=== PATIENT | female | born 1950 | race Caucasian/White ===

== ENCOUNTER → 2023-12-26 07:17 | Outpatient (REF) | payer MEDICARE, OTHER, SELFPAY ==
[2023-12-26 09:26] LABS: Blood Urea Nitrogen 12 mg/dl (7-17); Calcium 9.8 mg/dl (8.4-10.2); Carbon Dioxide 25 mmol/L (22-30); Chloride 97 mmol/L (98-107); Glucose 104 mg/dl (70-99); Sodium 133 mmol/L (135-145); eGFR > 60.00
== END ==
LOC: REG 07:17
PROVIDERS: ATTENDING PHYSICIAN Family Medicine
DX: E87.1 Hypo-osmolality and hyponatremia (principal)
CPT/HCPCS: 36415; 80048

== ENCOUNTER → 2024-08-26 14:04 | Outpatient (REF) | payer MEDICARE, OTHER, SELFPAY | LOC: WDC 14:04 | PROVIDERS: ATTENDING PHYSICIAN Family Medicine | DX: M81.0 Age-related osteoporosis without current pathological fracture (principal); Z12.31 Encounter for screening mammogram for malignant neoplasm of breast | CPT/HCPCS: 77063; 77067; 77080 ==

== ENCOUNTER → 2024-10-15 07:08 | Outpatient (REF) | payer MEDICARE, OTHER, SELFPAY ==
[2024-10-15 07:51] LABS: % Basophils 0.6 % (0-2); % Eosinophils 4.3 % (0-6); % Immature Granulocytes 0.6 % (0-0.5); % Lymphocytes 26.9 % (20.5-51.1); % Monocytes 11.3 % (1.7-9.3); % Neutrophils 56.3 % (42.2-75.2); Absolute Eosinophils 0.2 10^3/uL (0-0.7); Absolute Lymphocytes 1.3 10^3/uL (1.2-3.4); Absolute Monocytes 0.5 10^3/uL (0.1-0.6); Absolute Neutrophils 2.6 10^3/uL (1.4-6.5); Hematocrit 42.1 % (37.0-47.0); Hemoglobin 14.1 g/dL (12.0-16.0); Mean Corp Hgb Conc. 33.5 g/dL (33.0-37.0); Mean Corpuscular Hgb 33.2 pg (27.0-31.0); Mean Corpuscular Volume 99.1 fL (81.0-99.0); Nucleated Red Blood Cells % 0 %; Platelet Count 226 10^3/uL (130-400); Red Blood Cell Count 4.25 10^6/uL (4.20-5.40); Red Cell Dist. Width 12.7 % (11.5-14.5); White Blood Cell Count 4.7 10^3/uL (4.8-10.8)
[2024-10-15 09:42] LABS: ALT (SGPT) 25 U/L (0-35); AST (SGOT) 33 U/L (14-36); Albumin 4.5 g/dl (3.5-5.0); Alkaline Phosphatase 68 U/L (38-126); Blood Urea Nitrogen 9 mg/dl (7-17); Carbon Dioxide 27 mmol/L (22-30); Chloride 96 mmol/L (98-107); Direct Bilirubin 0.2 mg/dl (0.0-0.4); Glucose 99 mg/dl (70-99); HDL Cholesterol 89 mg/dl; LDL Cholesterol, Calculated 127 mg/dl; Potassium 4.5 mmol/L (3.5-5.1); Sodium 134 mmol/L (135-145); Total Cholesterol 236 mg/dl (50-199); Triglyceride 103 mg/dl (10-149); Very Low Density Lipoprotein 20 mg/dl (0-30); eGFR > 60.00
[2024-10-15 09:55] LABS: Vitamin D, 25-OH*** 58.5 ng/mL (30-80)
== END ==
LOC: REG 07:08
PROVIDERS: ATTENDING PHYSICIAN Internal Medicine Hematology & Oncology; FAMILY PHYSICIAN Family Medicine
DX: C50.411 Malignant neoplasm of upper-outer quadrant of right female breast (principal); E78.00 Pure hypercholesterolemia, unspecified; E87.1 Hypo-osmolality and hyponatremia; R73.9 Hyperglycemia, unspecified; Z00.00 Encounter for general adult medical examination without abnormal findings
CPT/HCPCS: 36415; 80053; 80061; 82248; 82306; 85025

== ENCOUNTER → 2025-05-04 06:33 | Outpatient (REF) | payer MEDICARE, OTHER, SELFPAY | LOC: RAD 06:33 | PROVIDERS: ATTENDING PHYSICIAN Optometrist; FAMILY PHYSICIAN Family Medicine | DX: G45.3 Amaurosis fugax (principal); G43.109 Migraine with aura, not intractable, without status migrainosus; H43.813 Vitreous degeneration, bilateral; H25.813 Combined forms of age-related cataract, bilateral | CPT/HCPCS: 93880 ==

== ENCOUNTER → 2025-05-07 08:09 | Outpatient (REF) | payer MEDICARE, OTHER, SELFPAY | LOC: RCS 08:09 | PROVIDERS: ATTENDING PHYSICIAN Nuclear Medicine Nuclear Cardiology; FAMILY PHYSICIAN Family Medicine | DX: I49.3 Ventricular premature depolarization (principal); I34.0 Nonrheumatic mitral (valve) insufficiency | CPT/HCPCS: 93306 ==

== ENCOUNTER 2025-05-08 20:46 | Inpatient (IN) | payer MEDICARE, OTHER, SELFPAY ==
[2025-05-08 18:34] VITALS: BP 175/71; BMI 27.0
[2025-05-08 18:49] LABS: % Basophils 0.4 % (0-2); % Eosinophils 2.1 % (0-6); % Immature Granulocytes 0.7 % (0-0.5); % Lymphocytes 31.9 % (20.5-51.1); % Monocytes 10.3 % (1.7-9.3); % Neutrophils 54.6 % (42.2-75.2); Absolute Eosinophils 0.2 10^3/uL (0-0.7); Absolute Immature Granulocytes 0.1 10^3/uL (0-0.05); Absolute Lymphocytes 2.3 10^3/uL (1.2-3.4); Absolute Monocytes 0.7 10^3/uL (0.1-0.6); Absolute Neutrophils 3.9 10^3/uL (1.4-6.5); Hematocrit 37.1 % (37.0-47.0); Hemoglobin 13.1 g/dL (12.0-16.0); Mean Corp Hgb Conc. 35.3 g/dL (33.0-37.0); Mean Corpuscular Hgb 33.1 pg (27.0-31.0); Mean Corpuscular Volume 93.7 fL (81.0-99.0); Nucleated Red Blood Cells % 0 %; Platelet Count 232 10^3/uL (130-400); Red Blood Cell Count 3.96 10^6/uL (4.20-5.40); Red Cell Dist. Width 12.4 % (11.5-14.5); White Blood Cell Count 7.1 10^3/uL (4.8-10.8)
[2025-05-08] MEDS: ZOFRAN 4 MG IV (18:55)
[2025-05-08] MEDS: MORPHINE SULFATE 2 MG IV ×2 (18:55→20:22)
--- NOTE | 2025-05-08 18:59 | ED.MUSCINJ ---
HPI-Injury
General
Chief Complaint: Musculo-Skeletal Complaint
Source: patient
Exam Limitations: none
Time Seen by Provider: 05/08/25 18:45
Nursing documentation reviewed up to this point in time: agreed with
History of Present Illness-Injury
Is this injury a work related problem?: No
Is pt an associate of [facility]?: No
Initial Injury comments:
Patient states she fell while playing basketball with her grandson. States her right foot stepped on her left foot and she fell. She denies hitting her head. No LOC. Complains of pain to her left hip. Injuryoccurred just DIRECTOR OF COMPLIANCE
Past History
Past History
ED Past Medical History: Arrthythmia, Cancer (Breast), HTN and Other (MS)
ED Past Surgical History: Gynecological (Tubal ligation, Oophorectomy) and Orthopedic (Laminectomy)
Social History
Tobacco: Non-smoker
Alcohol: None
Drug: None
Review of Systems
Review of Systems
Allergies reviewed?: Yes
All Other Systems: ROS reviewed and negative except as documented in HPI and ROS
Constitutional: Reports no symptoms
EENT: Reports no symptoms
Respiratory: Reports no symptoms
Cardiac: Reports no symptoms
ABD/GI: Reports no symptoms
: Reports no symptoms
Musculoskeletal: Reports joint pain (Pain to her left hip)
Skin: Reports no symptoms
Neurological: Reports no symptoms
Psychiatric: Reports no symptoms
Musculoskeletal Injury Exam
Musculoskeletal Injury Exam
Left Hip:
Pain with Movement?: Moderate
Tender to palpation?: Moderate
Soft tissue swelling?: Moderate
External deformity and angulation?: None
Joint effusion?: None
Contusion?: Moderate
Hematoma-local bleeding into tissue?: Moderate
Strain- Sprain- Tear (Connective tissue injury)?: Moderate
Crepitus with movement?: No
Joint instability?: No
Malalignment/deformity?: No
Range of motion: Limited
Distal skin color and temperature: normal-warm & good color
Capillary Refill: normal
Normal distal neurovascular exam?: Yes
Peripheral Pulses: posterior tibial (left): 3+ and dorsalis pedis (left): 3+
Phy Exam
General Physical Exam
General Presentation: moderate distress
General age: appears stated age
General Skin: warm and dry
General Habitus: normal
General Mental: alert
General Hydration: appears well hydrated
Musculoskeletal Exam
Musculoskeletal Exam: neuro vasc intact
Skin Exam
Skin Exam: normal color, warm/dry and no rash
Psychiatric Exam
Psychiatric Exam: normal mood/affect
Injury Course
Orders/Labs/Results
Orders:
Orders
05/08/25 18:41
Complete Blood Count/With Diff Urgent
Comprehensive Metabolic Panel Urgent
05/08/25 18:52
Morphine Sulfate 2 mg .ROUTE .STK-MED ONE
Ondansetron Injectable [Zofran] 4 mg .ROUTE .STK-MED ONE
05/08/25 18:53
Hip, Left 2-3 Views [CR Hip - LT w/wo Pel 2-3 Vw*] Urgent
Comment:
Reason For Exam: fall, externally rotated and shortened
Include a pelvis x-ray?: Yes
05/08/25 18:54
Morphine Sulfate 2 mg IV NOW STA
Ondansetron Injectable [Zofran] 4 mg IV NOW STA
Ondansetron Injectable [Zofran] 4 mg IV NOW STA
05/08/25 18:55
Morphine Sulfate 2 mg IV NOW STA
05/08/25 19:39
ORTHOPEDIC CONSULT Urgent
Consulting Provider: Getachew Steen
Was physician already notified: Yes
05/08/25 20:10
Electrocardiogram (*1) Urgent
Reason for Study: PreOp
EKG- Treatment ONCE
05/08/25 20:11
Morphine Sulfate 2 mg IV NOW STA
05/08/25 20:20
Type+Screen Urgent
05/08/25 20:33
Admit/Transfer Patient As Directed
Co-Sign Provider:
Level of Care: Inpatient admission
Assign to:: Medical/Surgical
Physician / Group: Erma/Hospitalist
Diagnosis: left hip fracture
Reason for Hospitalization: left hip fracture
Expected length of stay greater than two midnights?: Yes
ELOS- Estimated Length of Stay in days: 3
I certify the patient meets the requirements for IP care: Yes
PRN Pain Medication Management As Directed
May give lesser potent ordered pain med per pt: Yes
preference::
Protocol:: Medication orders for pain may be administered in a
manner that supports deferring to patient preference
when the pt is:
- Requesting an ordered lesser potent pain medication.
Least to most potent pain medications are defined
as: acetaminophen < NSAID < tramadol < opioids
(morphine, oxycodone, hydromorphone).
- Requesting a lesser dose of the same medication IF
ORDERED.
- Requesting a less intrusive route of administration
if both routes are prescribed by the provider (PO <
IV).
05/08/25 20:34
Code Status As Directed
Resuscitation Status: Full Code
Abnormal Lab Results
05/08/25
18:41
RBC 3.96 L 10^6/uL
(4.20-5.40)
MCH 33.1 H pg
(27.0-31.0)
Abs Immat Gran (auto) 0.1 H 10^3/uL
(0-0.05)
Absolute Monos (auto) 0.7 H 10^3/uL
(0.1-0.6)
Immature Gran % 0.7 H %
(0-0.5)
Monocytes % 10.3 H %
(1.7-9.3)
Sodium 133 L mmol/L
(135-145)
Glucose 113 H mg/dl
(70-99)
05/08/25 18:41
05/08/25 18:41
*Radiology
Radiology exam reviewed: radiology read reviewed
*Pulse Oximetry
Patient hypoxic: no
*Critical Care Note
Total Time (30-74mins, 75-104mins- exclusive of procedures): Not Applicable
Update Note
Update Note:
Patient to ED after fall. Xray confirms left hip fx. Dr. Steen consulted, plan for OR at 9AM. SHe is admitted to hospitalist service. Xray findings discussed with patient and family.
ED Attending Note
-
Portions of this chart may have been created with voice recognition software.� Occasional wrong word or��sound alike� substitutions may have occurred due to the inherent limitations of voice recognition software.
Discharge Plan
Departure
Patient Disposition: Admit
Date of Disposition: 05/08/25
Time of Disposition: 19:39
Presentation/result/management discussed w/ accepting MD/DO: Hospitalist
Patient with high blood pressure during this ER visit?: No
Condition: Fair
Covid-19: Not Applicable
Discharge Problem:
Closed fracture of left hip
Prescriptions:
No Action
metoprolol succinate 50 MG tablet extended release 24 hr
50 mg PO DAILY
ibuprofen 200 MG tablet
200 mg PO PRN PRN (Reason: pain)
acetaminophen 325 MG tablet
650 mg PO Q4HPRN PRN (Reason: Pain>4/10) 0RF
multivitamin Tablet
1 tab PO DAILY
loratadine 10 mg Tablet
10 mg PO DAILY
rosuvastatin 5 mg Tablet
5 mg PO DAILY
cholecalciferol (vitamin D3) [Vitamin D3] 50 mcg (2,000 unit) Capsule
50 mcg PO DAILY
Interventions
Interventions:
*Risk Screen - Suicide Last Done: 05/08/25 18:34
*General Assessment Last Done: 05/08/25 18:34
*Neglect/Abuse Screening Last Done: 05/08/25 18:34
*ED- Fall Risk Assessment Last Done: 05/08/25 18:34
*ED COVID-19 Vaccine History Last Done: 05/08/25 18:34
ED-Musculoskeletal Assessment Last Done: 05/08/25 18:38
Discharge Date and Time
Print Language: MONGOLIAN
[2025-05-08 19:00] VITALS: BP 162/70
[2025-05-08 19:18] LABS: ALT (SGPT) 19 U/L (0-35); AST (SGOT) 27 U/L (14-36); Albumin 4.4 g/dl (3.5-5.0); Alkaline Phosphatase 86 U/L (38-126); Blood Urea Nitrogen 11 mg/dl (7-17); Calcium 9.6 mg/dl (8.4-10.2); Carbon Dioxide 25 mmol/L (22-30); Chloride 103 mmol/L (98-107); Estimated Creatinine Clearance 60 ml/min; Glucose 113 mg/dl (70-99); Potassium 4.2 mmol/L (3.5-5.1); Sodium 133 mmol/L (135-145); Total Bilirubin 0.6 mg/dl (0.2-1.3); Total Protein 6.8 g/dl (6.3-8.2); eGFR > 60.00
--- NOTE | 2025-05-08 19:52 | HPS.HSE ---
Addendum entered and electronically signed by Tierra Ritchie, 05/08/25 20:42:
EKG reviewed- NSR, LAD, no evidence for myocardial ischemia
Original Note:
Family Physician
-
Family Physician:
Chief Complaint
-
Fall
History of Present Illness
The patient is a 74 year-old female with PMH significant for arrhythmia s/p ablation, breast cancer s/p left-sided mastectomy and chemotherapy, HTN, and remote diagnosis of MS (in the , not requiring medical treatment currently-has glove and
sock paraesthesias and no other symptoms), lumbar stenosis s/p lumbar fusion, left knee OA s/p left knee replacement, takes ibuprofen nightly, not on aspirin nor anticoagulants, who presents due to a fall on her hip resulting in severe pain,
inability to ambulate, and found to have a left hip fracture in the ED. She denies CP, no SOB, no palpitations, no fever, no n/v/d, no dysuria, no abdominal complaints.
Na 133, Gluc 113
ED treatment: IV Morphine, IV Zofran 4 mg
Medical History
Past Medical History
Past Medical History: Reports Arrhythmia, Cancer (breast), HTN and Other (MS)
Past Surgical History: Reports Cardiac (ablation for arrhythmia), Gynocological (Tubal ligation, oophorectomy) and Orthopedic (laminectomy, lumbar fusion, left knee replacement)
Social History
Tobacco: Non-smoker
Alcohol: Daily (1-2 glasses of wine nightly)
Drug: None
Family History
Family History: Not pertinent
Allergies / Home Medications
Allergies reflects when Allergies were last updated in [facility].
Home Medications with original date entered in [facility]
Allergy/Medication List:
Allergies
Allergy/AdvReac Type Severity Reaction Status Date / Time
adhesive tape Allergy Rash/itchin Verified 05/08/25 18:34
g
Home Medications
calcium 500 mg-vitamin D3 1,000 unit-vitamin K 40 mcg chewable tablet (Citracal-D3 Soft Chew) 1 ea PO DAILY 12/29/15
ibuprofen 200 mg tablet 200 mg PO PRN PRN pain 12/29/15
metoprolol succinate 50 mg tablet,extended release 24 hr 50 mg PO DAILY 12/29/15
Loratadine 1 tab PO PRN PRN allergies 08/19/18
acetaminophen 325 mg tablet 650 mg (2 x 325 mg) PO Q4HPRN PRN Pain>4/10 08/21/18
docusate sodium 100 mg capsule 100 mg PO BID 08/21/18
hydrocodone 5 mg-acetaminophen 325 mg tablet 1 tab PO Q4HPRN PRN pain >410 when taking PO ##20 08/21/18
Rosuvastatin 5 mg nightly
Review of Systems
-
A 12 point ROS was completed and negative except as noted: Yes
Physical Exam
Vital Signs
Vital Signs
Temp Pulse Resp BP Pulse Ox
97.8 F 64 16 175/71 99
05/08/25 18:34 05/08/25 18:34 05/08/25 18:34 05/08/25 18:34 05/08/25 18:34
Physical Exam
General: Well Developed, Well Nourished, No Apparent Distress, Comfortable and Conversant
HEENT: NormoCephalic, Anicteric and Moist mucous membranes
Respiratory: Clear
Cardiac: S1/S2, Regular Rhythm and Other (good distal pulses, neurovascular intact distal b/l LE)
GI: Soft, Non Tender and Non Distended
Musculoskeletal: No Clubbing, No Cyanosis and No Edema
Skin: Warm and Dry
Neuro: AO x 3, No Motor Deficits and Nonfocal/grossly intact
Psych: Calm
Laboratory Results
-
05/08/25 18:41
05/08/25 18:41
Laboratory Results
Total Bilirubin 0.6 mg/dl (0.2-1.3) 05/08/25 18:41
AST 27 U/L (14-36) 05/08/25 18:41
ALT 19 U/L (0-35) 05/08/25 18:41
Alkaline Phosphatase 86 U/L (38-126) 05/08/25 18:41
Data Reviewed
-
Diagnostic Radiology: Image Personally Visualized and interpreted (left hip intertrochanteric fx, report pending), Discussed with Nurse, Discussed with Patient and Discussed with Family
Lab Data: Labs Reviewed by me
Impression/Plan
-
IMPRESSION:
The patient is a 74 year-old female with PMH significant for arrhythmia s/p ablation, breast cancer s/p left-sided mastectomy and chemotherapy, HTN, and remote diagnosis of MS (in the , not requiring medical treatment currently-has glove and
sock paraesthesias and no other symptoms), lumbar stenosis s/p lumbar fusion, left knee OA s/p left knee replacement, takes ibuprofen nightly, not on aspirin nor anticoagulants, who presents due to a fall on her hip resulting in severe pain,
inability to ambulate, and found to have a left hip fracture in the ED. She denies CP, no SOB, no palpitations, no fever, no n/v/d, no dysuria, no abdominal complaints.
Na 133, Gluc 113
ED treatment: IV Morphine, IV Zofran 4 mg
Impression:
#Left Hip Fracture, intertrochanteric, acute, associated with severe pain and inability to ambulate, neurovascular is intact
-admit to med/surg
-Ortho consulted from ED
-continue IV morphine, IV zofran prn
-IVF overnight while NPO
-neurovascular checks scheduled
-NPO p mn for surgery 9 am, no lovenox nor heparin per ortho, will placed SCDs
# Hx arrhythmia s/p ablation, remote
-Echocardiogram performed here May 07, 2025- normal left ventricular size and systolic function with no regional wall motion abnormalities, EF of 50 to 55%, mild concentric left ventricular hypertrophy,
-stage I diastolic dysfunction
- Will obtain EKG
-Continue patient's beta-johana- metoprolol 50 mg extended release nightly
#HLD
-just started on statin 2 days prior, continue
#HTN, essential
-on metoprolol, continue, BP elevated likely due to pain, cont pain management and prn BP meds
#Hx of L knee replacement
#Hx of spinal stenosis s/p lumbar fusion
#Hx of MS, remote, remission
#Hx of Breast cancer, 2018 s/p mastectomy and chemo w no recurrence, up to date on mammo
PLAN: The patient is at low surgical risk for cardiovascular complications and her medical comorbidities are well compensated. She is medically stable and optimized for surgical intervention, will be n.p.o. past midnight for surgical intervention
tomorrow with orthopedics.
DVT proph-PCDs
Full Code
[2025-05-08 20:25] VITALS: BP 126/84
[2025-05-08 21:00] VITALS: BP 113/67
--- NOTE | 2025-05-08 22:30 | PTCARENOTE ---
Pt arrived to room 417-1. Pt transferred from stretcher to bed. Pt AAOx3, VSS. Pt c/o 6-06/04 L hip pain. Oriented to room, call gonzalez placed within reach.
[2025-05-08 22:38] VITALS: BP 138/66; BMI 24.9
[2025-05-08] MEDS: TOPROL XL 50 MG PO (22:44)
[2025-05-08] MEDS: COLACE 100 MG PO (22:44)
[2025-05-08] MEDS: SENOKOT 17.2 MG PO (22:44)
[2025-05-08] MEDS: NSS 1000 IV (22:44)
[2025-05-08] MEDS: TYLENOL 650 MG PO (23:00)
[2025-05-09] VITALS (15 sets, daily range): BP systolic 86–152; BP diastolic 50–102
[2025-05-09] MEDS: MORPHINE SULFATE 1 MG IV ×2 (00:43→08:04)
[2025-05-09] MEDS: TYLENOL 650 MG PO ×5 (03:11→20:17)
[2025-05-09] MEDS: TOPROL XL 50 MG PO (08:06)
[2025-05-09] MEDS: VITAMIN D3 (cholecalciferol) 50 MCG PO (08:06)
[2025-05-09] MEDS: SENOKOT 17.2 MG PO ×2 (08:06→20:17)
[2025-05-09] MEDS: CRESTOR 5 MG PO (08:06)
[2025-05-09] MEDS: COLACE 100 MG PO ×2 (08:07→20:17)
--- NOTE | 2025-05-09 09:37 | W.PN.UPDATE ---
Update Note
Progress Note Update
Pt seen and examined, has left hip intertrochanteric fx from mechanical fall playing basketball w. her grandson.
Reports no preexisting hip pain. H/o breast cancer w. ostensibly curative treatment in 2018, no known distant disease.
In good health.
I rec'd ORIF of the left hip fx and described what this entails and susan pictures for her and her . They both are in agreement to proceed which we will do this morning.
--- NOTE | 2025-05-09 09:38 | CON.ORTHO ---
Consultation
-
Date/Time Consultation Requested: 05/09/25
Date/Time Consultation Performed: 05/09/25 @930am
Requesting Provider: ER Provider
Performing Provider: Ratna Alegre PA-C, Getachew Steen MD
Reason for Consultation: left hip fracture
Consultation - Orthopedics
History
HPI: 74yo female admitted to [facility] for left hip pain. Yesterday, she was playing basketball with her eight year old grandson when her feet got caught up causing her to fall on to her left side. She has immediate pain to the left hip
and difficulty bearing weight. She presented to the ER where xrays revealed left hip fracture. She is not on any blood thinners. Currently, she just received some pain medications and therefore is resting comfortable in bed. Her , Benigno, is
also at the bedside.
PAST MEDICAL HISTORY: history of breast cancer s/p chemo, cardiac arrhythmia, HTN, and remote diagnosis of MS (in the 1980s, not requiring medical treatment currently-has glove and sock paraesthesias and no other symptoms), lumbar stenosis, left
knee OA
PAST SURGICAL HISTORY: left mastectomy, cardiac ablation, lumbar spinal fusion with Dr. Braga, left TKA with Dr. Valencia
SOCIAL HISTORY: lives at home with . denies tobacco, alcohol. ambulates without assistive device
FAMILY HISTORY: Noncontributory
REVIEW OF SYSTEMS: 12 point review of systems obtained and negative exept those mentioned in the HPI
Allergies / Home Medications
Allergy/AdvReac Type Severity Reaction Status Date / Time
adhesive tape Allergy Rash/itchin Verified 05/08/25 18:34
g
�Medication �Instructions �Recorded
ibuprofen 200 mg tablet 200 mg PO PRN PRN pain 12/29/15
metoprolol succinate 50 mg 50 mg PO DAILY Blood Pressure 12/29/15
tablet,extended release 24 hr
acetaminophen 325 mg tablet 650 mg (2 x 325 mg) PO Q4HPRN PRN 08/21/18
Pain>4/10
cholecalciferol (vitamin D3) 50 50 mcg PO DAILY Supplement 05/08/25
mcg (2,000 unit) capsule (Vitamin
D3)
loratadine 10 mg tablet 10 mg PO DAILY Allergies 05/08/25
multivitamin 1 tab PO DAILY Supplement 05/08/25
rosuvastatin 5 mg tablet 5 mg PO DAILY High Cholesterol 05/08/25
Vital Signs / Lab Results
Temp Pulse Resp BP Pulse Ox
98.9 F 58 18 141/71 96
05/09/25 07:00 05/09/25 08:06 05/09/25 07:00 05/09/25 08:06 05/09/25 07:00
05/08/25 18:41
05/08/25 18:41
RADIOGRAPHIC FINDINGS:
Xrays left hip there is a comminuted intertrochanteric fracture of the proximal left femur with some splaying of several small fracture fragments. Osseous degenerative changes are noted as well as postsurgical changes of the lower lumbar spine.
PHYSIAL EXAM:
General: no acute distress
HEENT: NCAT, sclera anicteric, normal hearing
Heart: No JVD
Lungs: normal work of breathing on room air
MSK: Directed exam of left leg performed. leg is shortened and externally rotates. +Log roll. skin intact. no discolorations. ROM hip deferred. +TTP over lateral hip. calf soft and nontender. NVI distally.
Assessment / Plan
ASSESSMENT: Left hip intertrochanteric fracture
PLAN: Patient seen in tandem with Dr. Steen. Unfortunately, Mrs. Sharp sustained a left intertrochanteric hip fracture with her fall yesterday. Recommend operative fixation with left hip gamma nail under the direction of Dr. Steen today. The
risks, benefits, and potential complications were reviewed. She is in agreement with the plan. Surgical and blood consents obtained. She has been NPO since midnight. Ancef aviation mechanic to OR. She will require PT/OT postop. All of her questions were
answered. We will continue to follow along
[2025-05-09] MEDS: SUBLIMAZE 25 MCG IV ×2 (11:12→11:22)
[2025-05-09] MEDS: ANCEF 5 IV ×2 (12:17→20:16)
[2025-05-09] MEDS: NSS 1000 IV (12:17)
--- NOTE | 2025-05-09 12:24 | CM ---
Addendum entered by HORTENCIA Cox 05/09/25 12:28:
Referral to [facility] PT only saved in [facility] but not sent to [facility].
Original Note:
Chart reviewed. Patient admitted after fall while playing basketball with her grandson. She has left hip fracture. Dr. Schwab did surgical repair, left gamma nail. Cm met with spouse while patient in surgery. They live in 2 level home with a first
floor set up she used when she had TKR. THere are 5 steps in. First floor full bath has a tub, no DME in bathroom. She may still have a RW but has crutches and cane. UP full flight is walk in shower with seat and rails.
PCP DR. Sutton
Pharmacy: [facility]
Will await PT OT evaraseli but believes patient will want to go home to first floor set up. She had [facility] in past and would use [facility] at home if necessary. CM to follow for discharge needs.
PLAN: may need home PT or outpatient PT.
--- NOTE | 2025-05-09 16:11 | W.PN.HOSP.TC ---
Today's Communication/Plan
-
pain control
follow hbg level
pt/ot in am
discharge planning from tomorrow
Assessment / Plan
Assessment / Plan
#Left Hip Fracture, intertrochanteric, acute, associated with severe pain and inability to ambulate, neurovascular is intact
-admit to med/surg
- Patient is status post left hip surgery today
-Continue pain medication as needed
-PT OT tomorrow early
# Hx arrhythmia s/p ablation, remote
-Echocardiogram performed here May 07, 2025- normal left ventricular size and systolic function with no regional wall motion abnormalities, EF of 50 to 55%, mild concentric left ventricular hypertrophy,
-stage I diastolic dysfunction
-Continue patient's beta-johana- metoprolol 50 mg extended release nightly
#HLD
-just started on statin 2 days prior, continue
#HTN, essential
-on metoprolol, continue, BP elevated likely due to pain, cont pain management and prn BP meds
Hx of L knee replacement
Hx of spinal stenosis s/p lumbar fusion
Hx of MS, remote, remission
Hx of Breast cancer, 2018 s/p mastectomy and chemo w no recurrence, up to date on mammo
DVT proph-PCDs
Full Code
Anticipated Discharge: 24 - 48 hours
Subjective/Interval History
-
Date of Service: May 09, 2025
Seen postoperatively
no hip pain
no other complains
Objective Data
-
Vital Signs:
Vital Signs
Temp Pulse Resp BP Pulse Ox
97.7 F 59 18 101/62 100
05/09/25 15:00 05/09/25 15:00 05/09/25 15:00 05/09/25 15:00 05/09/25 15:00
I&O
05/08/25 05/09/25 05/10/25
06:59 06:59 06:59
Intake Total 100 / 100
Balance 100 / 100
Review of Systems
-
Respiratory: Reports No Symptoms
Cardiac: Reports No Symptoms
Abdomen/GI: Reports No Symptoms
Physical Exam
-
General: Pain
HEENT: Negative Oxygen
Neuro: Awake, Alert and Oriented
[2025-05-09] MEDS: ASPIRIN 325 MG PO (17:05)
[2025-05-10] VITALS (9 sets, daily range): BP systolic 98–133; BP diastolic 44–73; PULSE 65; O2SAT 98
[2025-05-10] MEDS: ROXICODONE 5 MG PO ×2 (00:26→09:08)
[2025-05-10] MEDS: TYLENOL 650 MG PO ×6 (00:27→20:00)
[2025-05-10] MEDS: CRESTOR 5 MG PO (07:46)
[2025-05-10] MEDS: SENOKOT 17.2 MG PO ×2 (07:46→20:00)
[2025-05-10] MEDS: COLACE 100 MG PO ×2 (07:46→20:00)
[2025-05-10] MEDS: ASPIRIN 325 MG PO (07:47)
[2025-05-10] MEDS: TOPROL XL 50 MG PO (07:47)
[2025-05-10] MEDS: VITAMIN D3 (cholecalciferol) 50 MCG PO (07:47)
--- NOTE | 2025-05-10 12:40 | W.PN.HOSP.TC ---
Addendum entered and electronically signed by Artem Delcid MD 05/10/25 12:54:
Acute blood loss anemia
- Morning labs reported with hemoglobin to down to 8, which was 13 preoperatively
- Recheck in evening as possibly sampling/lab error. No reported significant blood loss from OR note reviewed.
- will need transfusion if Hbg < 7
- No other signs of ongoing luminal blood loss.
Original Note:
Today's Communication/Plan
-
continue current meds
d/c planning for rehab
f/u hbg level
Assessment / Plan
Assessment / Plan
#Left Hip Fracture, intertrochanteric, acute, associated with severe pain and inability to ambulate, neurovascular is intact
-admit to med/surg
- Patient is status post left hip surgery on 05/09
-Continue pain medication as needed
-PT OT evaluated patient, discharge planning ongoing
# Hx arrhythmia s/p ablation, remote
-Echocardiogram performed here May 07, 2025- normal left ventricular size and systolic function with no regional wall motion abnormalities, EF of 50 to 55%, mild concentric left ventricular hypertrophy,
-stage I diastolic dysfunction
-Continue patient's beta-johana- metoprolol 50 mg extended release nightly
#HLD
-just started on statin 2 days prior, continue
#HTN, essential
-on metoprolol, continue, BP elevated likely due to pain, cont pain management and prn BP meds
Hx of L knee replacement
Hx of spinal stenosis s/p lumbar fusion
Hx of MS, remote, remission
Hx of Breast cancer, 2018 s/p mastectomy and chemo w no recurrence, up to date on mammo
DVT proph-PCDs
Full Code
Anticipated Discharge: Within 24 hours
Subjective/Interval History
-
Date of Service: May 10, 2025
Denies of any significant pain
Able to work with physical therapy
No dizziness/palpitation/dyspnea
Objective Data
-
Labs:
Laboratory Results
05/10/25
12:31
WBC Pending
Hgb Pending
Hct Pending
Plt Count Pending
Vital Signs:
Vital Signs
Temp Pulse Resp BP Pulse Ox
97.7 F 63 18 123/66 97
05/10/25 07:02 05/10/25 07:02 05/10/25 07:02 05/10/25 07:47 05/10/25 07:02
I&O
05/09/25 05/10/25 05/11/25
06:59 06:59 06:59
Intake Total 580 / 580 420 / 420
Balance 580 / 580 420 / 420
Review of Systems
-
Respiratory: Reports No Symptoms
Cardiac: Reports No Symptoms
Abdomen/GI: Reports No Symptoms
Physical Exam
-
General: Pain
HEENT: Negative Oxygen
GI: Soft, Nontender and Nondistended
Musculoskeletal: Other (Left hip dressing in place, dried blood )
Neuro: Awake, Alert and Oriented
[2025-05-10 12:48] LABS: Hemoglobin 7.9 g/dL (12.0-16.0); Mean Corp Hgb Conc. 35.9 g/dL (33.0-37.0); Mean Corpuscular Hgb 34.2 pg (27.0-31.0); Mean Corpuscular Volume 95.2 fL (81.0-99.0); Mean Platelet Volume 10.2 fL (7.4-10.4); Platelet Count 176 10^3/uL (130-400); Red Blood Cell Count 2.31 10^6/uL (4.20-5.40); Red Cell Dist. Width 12.6 % (11.5-14.5); White Blood Cell Count 12.4 10^3/uL (4.8-10.8)
--- NOTE | 2025-05-10 13:51 | W.PN.ORTHO ---
Today's Communication / Plan
-
POD#1 left hip gamma nail under the direction of Dr. Steen
--Weight bearing as tolerated. Ambulate with assistive device
--PT/OT
--Pain management as needed
--Aspirin 325mg daily x4 weeks postop for DVT prophylaxis
--Hemoglobin 7.9 on AM labs. Repeat hemoglobin pending. Continue to monitor. Transfuse per primary if indicated
--Proximal and middle dressings with drainage extending to the border. This was changed. Reinforce/change as needed
--Case management consult for discharge planning
--Will continue to follow along
Assessment
.
Distal Motor Intact: Yes
Dressing:
proximal and middle dressing with bloody drainage to border
Plan
.
Surgery / Date: Left hip gamma nail 05/09/25 Dr. Steen
DVT Prophylaxis: Aspirin
Activity:
Out of bed.
PT/OT
Subjective
.
.:
Patient resting comfortably in bed. She reports that she was out of bed yesterday and today with PT. She reports pain with movement but manageable at rest
Vital Signs and Labs
.
Vital Signs and Labs:
Lab Results
05/08/25 18:41
Temp Pulse Resp BP Pulse Ox
98.5 F 69 16 111/59 97
05/10/25 11:10 05/10/25 11:10 05/10/25 11:10 05/10/25 11:10 05/10/25 11:10
Physical Exam
-
Directed exam of left hip with three primaseal dressings intact. There is bloody drainage to the proximal and middle dressings extending to the border. +TTP over lateral hip, thigh is soft and compressible. able to plantarflex and dorsiflex the
ankle. calf soft and nonteder. NVI distally
--- NOTE | 2025-05-10 13:59 | CM ---
CM following re: discharge planning.
Reviewed pt's chart, met with pt and pt's at bedside.
Pt is status post left hip surgery on 05/09, continue supportive care.
PT and OT evaluations noted - acute level of rehab recommended.
CM discussed it with pt and her and they requested [facility]. A referral to [facility] made.
Alternative subacute level of rehab discussed with the [pt in case pt does not qualify for acute level of rehab and pt requested [facility] or [facility]. A referral to above SNFs made.
D/C plan: Plan A: [facility]. Plan B: preferred SNF: [facility] or [facility].
CM will follow to assist pt with discharge to a preferred SNF.
[2025-05-10 18:08] LABS: Hematocrit 21.2 % (37.0-47.0); Hemoglobin 7.4 g/dL (12.0-16.0); Mean Corp Hgb Conc. 34.9 g/dL (33.0-37.0); Mean Corpuscular Hgb 33.2 pg (27.0-31.0); Mean Corpuscular Volume 95.1 fL (81.0-99.0); Mean Platelet Volume 10.4 fL (7.4-10.4); Platelet Count 162 10^3/uL (130-400); Red Blood Cell Count 2.23 10^6/uL (4.20-5.40); Red Cell Dist. Width 12.4 % (11.5-14.5); White Blood Cell Count 11.1 10^3/uL (4.8-10.8)
--- NOTE | 2025-05-10 23:28 | PTCARENOTE ---
1u PRBC infused as ordered. Pt's VS as documented. No adverse reactions. Care ongoing.
[2025-05-11] MEDS: TYLENOL PO ×2 (01:00→04:19)
[2025-05-11] MEDS: ROXICODONE 5 MG PO ×2 (02:43→10:14)
--- NOTE | 2025-05-11 05:50 | W.PN.ORTHO ---
Today's Communication / Plan
-
74F POD#2 left hip cephalomedullary nail with Dr. Steen
--Weight bearing as tolerated. Ambulate with assistive device
--PT/OT
--Pain management as needed
--diet per primary
--Aspirin 325mg daily x4 weeks postop for DVT prophylaxis
--Reinforce/change as needed
--Case management consult for discharge planning
--Discharge information up to date.
Assessment
.
Distal Motor Intact: Yes
Dressing:
Clean, dry edges and intact.Minimal saturation
Plan
.
Surgery / Date: Left hip CMN 05/09/25 Dr. Steen
Activity:
Out of bed.
PT/OT
Subjective
.
.:
Patient resting comfortably.
Vital Signs and Labs
.
Vital Signs and Labs:
Lab Results
05/08/25 18:41
Temp Pulse Resp BP Pulse Ox
97.9 F 63 18 122/56 97
05/10/25 23:19 05/10/25 23:19 05/10/25 23:19 05/10/25 23:19 05/10/25 23:00
[2025-05-11 07:35] VITALS: BP 124/61
[2025-05-11 08:01] LABS: Hematocrit 24.6 % (37.0-47.0); Hemoglobin 8.7 g/dL (12.0-16.0); Mean Corp Hgb Conc. 35.4 g/dL (33.0-37.0); Mean Corpuscular Hgb 32.3 pg (27.0-31.0); Mean Corpuscular Volume 91.4 fL (81.0-99.0); Platelet Count 154 10^3/uL (130-400); Red Blood Cell Count 2.69 10^6/uL (4.20-5.40); Red Cell Dist. Width 15.1 % (11.5-14.5); White Blood Cell Count 9.4 10^3/uL (4.8-10.8)
[2025-05-11] MEDS: CRESTOR 5 MG PO (08:48)
[2025-05-11] MEDS: TOPROL XL 50 MG PO (08:49)
[2025-05-11] MEDS: TYLENOL 650 MG PO ×2 (08:49→12:10)
[2025-05-11] MEDS: VITAMIN D3 (cholecalciferol) 50 MCG PO (08:49)
[2025-05-11] MEDS: ASPIRIN 325 MG PO (08:50)
[2025-05-11] MEDS: SENOKOT PO (08:51)
[2025-05-11] MEDS: COLACE PO (08:51)
[2025-05-11 11:30] VITALS: BP 106/55; BP 87/59; BP 97/53; PULSE 66; PULSE 70
--- NOTE | 2025-05-11 11:43 | PTCARENOTE ---
Pt hypotensive (BP 87/59 HR 70) while working with PT/OT. Pt assisted into wheelchair and immediately stated feeling better once sitting. Pt wheeled back to room and assisted into recliner chair. BP recheck 97/53 HR 63. Pt denies any further
symptoms at this time. Dr Franco notified, care ongoing.
[2025-05-11] MEDS: NSS 1000 IV ×2 (12:11→14:28)
[2025-05-11 12:44] VITALS: BP 106/55; BP 97/53; PULSE 66
--- NOTE | 2025-05-11 12:49 | W.PN.HOSP.TC ---
Addendum entered and electronically signed by Inocencio Moon DO 05/11/25 16:31:
Additional diagnosis:
fracture due to combination of trauma and pathologic process (osteopenia) but the trauma alone would likely not have been sufficient to cause the fracture
Original Note:
Today's Communication/Plan
-
Assessment / Plan
Assessment / Plan
General: No Apparent Distress, Comfortable and Conversant
HEENT: NormoCephalic, Moist mucous membranes, Atraumatic
Respiratory: Clear and Non Labored Respirations
Cardiac: S1/S2 and Regular Rhythm; No Rub or Gallop
GI: Soft, Non Tender, Non Distended and Normal Bowel Sounds
Musculoskeletal: No Edema, no deformity, left lateral leg surgical site with mild strikethrough
: NO Jorge
Neuro: Awake, Alert, Nonfocal/grossly intact
Psych: Calm and Intact Judgment/Insight
#Left Hip Fracture, intertrochanteric, acute, associated with severe pain and inability to ambulate, neurovascular is intact
- status post left hip surgery on 05/09
-Continue pain medication as needed, aspirin 325 daily postoperatively for 4 weeks per Ortho
-PT OT evaluated patient, excepted to acute rehab at [facility]
Anemia requiring transfusions
- Hemoglobin dropped from 13.1 preoperatively to 7.9 postoperatively
- Likely multifactorial including expected intraoperative blood loss and dilutional effect from IV fluid administration
- Transfused 1 unit PRBCs on 05/10, hemoglobin now 8.7, will monitor
# Hx arrhythmia s/p ablation, remote
-Echocardiogram performed here May 07, 2025- normal left ventricular size and systolic function with no regional wall motion abnormalities, EF of 50 to 55%, mild concentric left ventricular hypertrophy,
-stage I diastolic dysfunction
-Continue patient's beta-johana- metoprolol 50 mg extended release nightly
#HLD
-just started on statin 2 days prior to arrival, continue
#HTN, essential
-on metoprolol, continue, BP currently controlled
Hx of L knee replacement
Hx of spinal stenosis s/p lumbar fusion
Hx of MS, remote, remission
Hx of Breast cancer, 2018 s/p mastectomy and chemo w no recurrence, up to date on mammo
DVT proph-PCDs
Full Code
Anticipated Discharge: Within 24 hours
Subjective/Interval History
-
Date of Service: May 11, 2025
Patient was seen and examined at bedside this morning. She is anxiously awaiting rehab placement for physical therapy postoperatively. No active bleeding and hemoglobin remains stable after transfusion 1 unit PRBCs yesterday.
Objective Data
-
Labs:
Laboratory Results
05/11/25
07:08
WBC 9.4
Hgb 8.7 L
Hct 24.6 L
Plt Count 154
Vital Signs:
Vital Signs
Temp Pulse Resp BP Pulse Ox
98.2 F 75 16 124/61 96
05/11/25 07:35 05/11/25 07:35 05/11/25 07:35 05/11/25 07:35 05/11/25 07:35
I&O
05/10/25 05/11/25 05/12/25
06:59 06:59 06:59
Intake Total 580 / 580 1235 / 1235
Balance 580 / 580 1235 / 1235
Review of Systems
-
History Source: Patient
All other systems: Reviewed and negative
Musculoskeletal: Reports Joint Pain (Left lateral leg pain at surgical site)
Physical Exam
-
General: No Apparent Distress
[2025-05-11 14:36] VITALS: BP 124/60; BP 125/62; PULSE 76; PULSE 87
--- NOTE | 2025-05-11 14:51 | PTCARENOTE ---
Report called to Sarah snider in [facility]. R FA IV left in place per request. This RN awaiting IV bolus completion and DC order/ paperwork.
--- NOTE | 2025-05-11 14:54 | W.DCSUMMARY ---
Discharge Summary
Discharge Data
Date of Admission: 05/08/25
Date of Discharge: 05/11/25
Total time spent discharging patient (in min): 40
-
Pending Results: No
Hospital Course
Ms. Sharp is a 74-year-old female with a medical history of arrhythmia (status post ablation), breast cancer (status post left mastectomy and chemo), hypertension, remote diagnosis of MS (, not on medical treatment, has glove and sock
paresthesias only), lumbar stenosis (status post fusion), and osteoarthritis (status post left TKA) who presented following a fall resulting in left hip fracture. She was admitted for further evaluation and management. She underwent ORIF on 05/09
with left hip cephalomedullary nail. She tolerated procedure well. She did require transfusion of 1 unit PRBCs on 05/10 for drop in hemoglobin from 13.1 preoperatively to 7.9 postoperatively. Her hemoglobin level responded to 8.7 following
transfusion. She is medically stable for discharge to acute rehab at [facility] for ongoing postoperative physical therapy. She will be continued on aspirin 325 mg daily for 4 weeks postop and will need to follow-up with orthopedics in their outpatient
clinic. She should continue taking pantoprazole for acid suppression in order to prevent stomach ulcers while taking full-strength aspirin postoperatively.
General: No Apparent Distress, Comfortable and Conversant
HEENT: NormoCephalic, Moist mucous membranes, Atraumatic
Respiratory: Clear and Non Labored Respirations
Cardiac: S1/S2 and Regular Rhythm; No Rub or Gallop
GI: Soft, Non Tender, Non Distended and Normal Bowel Sounds
Musculoskeletal: No Edema, no deformity, left lateral leg surgical site with mild strikethrough
: NO Jorge
Neuro: Awake, Alert, Nonfocal/grossly intact
Psych: Calm and Intact Judgment/Insight
Discharge Plan
-
Patient Disposition: Acute Rehab Facility
Discharge Diagnosis/Procedures: Left hip fracture, anemia requiring transfusion
Diet: Low Cholesterol
Activity: As tolerated and With Walker
Driving Restrictions: No driving
Bathing Restrictions: OK to Shower
Wound Care: maintain dressing for 7-10 days; sharan/sutures out 2 weeks from DOS
Activity Restrictions/Additional Instructions:
Ms. Sharp is a 74-year-old female with a medical history of arrhythmia (status post ablation), breast cancer (status post left mastectomy and chemo), hypertension, remote diagnosis of MS (, not on medical treatment, has glove and sock
paresthesias only), lumbar stenosis (status post fusion), and osteoarthritis (status post left TKA) who presented following a fall resulting in left hip fracture. She was admitted for further evaluation and management. She underwent ORIF on 05/09
with left hip cephalomedullary nail. She tolerated procedure well. She did require transfusion of 1 unit PRBCs on 05/10 for drop in hemoglobin from 13.1 preoperatively to 7.9 postoperatively. Her hemoglobin level responded to 8.7 following
transfusion. She is medically stable for discharge to acute rehab at [facility] for ongoing postoperative physical therapy. She will be continued on aspirin 325 mg daily for 4 weeks postop and will need to follow-up with orthopedics in their outpatient
clinic. She should continue taking pantoprazole for acid suppression in order to prevent stomach ulcers while taking full-strength aspirin postoperatively.
Referrals:
Ila Sutton MD [Family Provider, Family Practice]
Getachew Steen MD [Active, Orthopedics]
Referral Note: f/u 2 weeks from date of surgery for wound check and staple/suture removal; if done at [facility]/SNF, can have outpatient f/u 4-6 weeks from date of surgery with xrays done in advance of an AP pelvis, hip and femur xray.
Prescriptions:
New
sennosides [Nidia-cheryl] 8.6 mg Tablet
17.2 mg PO BID 7 Days Qty: 28 0RF
acetaminophen 325 mg Tablet
650 mg PO Q4HWA 5 Days Qty: 60 0RF
aspirin 325 mg Tablet
325 mg PO DAILY 30 Days Qty: 30 0RF
docusate sodium 100 mg Capsule
100 mg PO BID 7 Days Qty: 14 0RF
oxycodone 5 mg Tablet
5 mg PO Q4HPRN PRN (Reason: mild pain) Qty: 15 0RF
pantoprazole 40 mg tablet,delayed release (DR/EC)
40 mg PO DAILY 30 Days Qty: 30 0RF
Rx Instructions:
Take daily while on high dose aspirin postoperatively to prevent stomach ulcers
Continued
metoprolol succinate 50 MG tablet extended release 24 hr
50 mg PO DAILY
multivitamin Tablet
1 tab PO DAILY
loratadine 10 mg Tablet
10 mg PO DAILY
rosuvastatin 5 mg Tablet
5 mg PO DAILY
cholecalciferol (vitamin D3) [Vitamin D3] 50 mcg (2,000 unit) Capsule
50 mcg PO DAILY
Held
ibuprofen 200 MG tablet
200 mg PO PRN PRN (Reason: pain)
Hold Instructions: Hold while taking full-strength aspirin postoperatively
acetaminophen 325 MG tablet
650 mg PO Q4HPRN PRN (Reason: Pain>4/10) 0RF
Hold Instructions: Hold while on the postoperative pain medication regimen
Discharge Orders:
Discharge Patient (As Directed); Ordered 05/11/25
Ordered By: Inocencio Moon
Discharge Date and Time
Print Language: NIGERIEN
[2025-05-11 15:15] VITALS: BP 119/55
--- NOTE | 2025-05-11 15:58 | PTCARENOTE ---
Repeat VSS relayed to Sarah nurse [facility], per request. Pt to be discharged to [facility], all questions answered.
--- NOTE | 2025-05-11 16:03 | PN.CDI ---
CDI
- -
CDI:
Physician Documentation Request
Admit Date: 05/08/25 20:46
Dear Doctor,
Please review the following and provide your response in the progress notes.
Clinical Indicators:
Pt admitted with Left Hip Fracture, intertrochanteric, acute.
05/08 Hip Xray: There is a comminuted intertrochanteric fracture of the proximal left femur with some splaying of several small fracture fragments.
Osseous degenerative changes are noted as well as postsurgical changes of the lower lumbar spine.
External Medical Report notes a Medical history of osteoporosis of forearm and osteopenia of femur.
medication list included: Vitamin D3 25 MCG (1000 UT) , Ibandronate Sodium 150 MG
01/14/09 Bone density : In the proximal femur, the average density is 0.913 gr/cm sq., which is 0.2 SD below the mean for a young female population at peak bone density. Notably, the density of the femoral neck is 1.3 SD below peak mean density.
IMPRESSION: Osteopenia in the femoral neck
Please provide further specificity regarding the diagnosis of fracture:
Etiology
Pathologic due to osteoporosis
Traumatic
Due to a combination of trauma and a pathological process
but the trauma alone would not likely have been sufficient
to cause the fracture
Other
Use of terms such as suspected, likely, concern for, or probable (associated with a specific diagnosis that is being evaluated, monitored, or treated as if it exists) are acceptable and can be coded in the inpatient setting, when documented at the
time of discharge.
Thank you,
Supriya Montero RN, BSN
CDI Specialist
[facility]
Please use your independent medical judgment in providing your response.
== END 2025-05-11 16:10 | DRG 481 ==
LOC: 2 SOUTH 20:46
PROVIDERS: Emergency Medicine; Hospitalist; ADMITTING PHYSICIAN Internal Medicine; ATTENDING PHYSICIAN Internal Medicine; CONSULT PHYSICIAN Orthopaedic Surgery; EMERGENCY PHYSICIAN Student in an Organized Health Care Education/Training Program; FAMILY PHYSICIAN Family Medicine
PROC: 0QS706Z Reposition Left Upper Femur with Intramedullary Internal Fixation Device, Open Approach (ICD-10-PCS; 2025-05-09)
PROC: 30233N1 Transfusion of Nonautologous Red Blood Cells into Peripheral Vein, Percutaneous Approach (ICD-10-PCS; 2025-05-10)
DX: S72.142A Displaced intertrochanteric fracture of left femur, initial encounter for closed fracture (principal); D62 Acute posthemorrhagic anemia; W01.0XXA Fall on same level from slipping, tripping and stumbling without subsequent striking against object, initial encounter; Y93.67 Activity, basketball; Y92.9 Unspecified place or not applicable; G35 Multiple sclerosis; M85.89 Other specified disorders of bone density and structure, multiple sites; E78.5 Hyperlipidemia, unspecified; I10 Essential (primary) hypertension; Z96.652 Presence of left artificial knee joint; Z85.3 Personal history of malignant neoplasm of breast; Z92.21 Personal history of antineoplastic chemotherapy; Z98.1 Arthrodesis status; Z91.048 Other nonmedicinal substance allergy status; Z90.12 Acquired absence of left breast and nipple
CPT/HCPCS: 88304; 88311; 73502; 76000; 80053; 85025; 85027; 86850; 86900; 86901; 86920; 88341; 88360; 93005; 93306; 96374; 96375; 96376; 97110; 97116; 97163; 97167; 97530; 97535; 99285; C1713; C1769; P9016

== ENCOUNTER → 2025-10-13 14:03 | Outpatient (REF) | payer MEDICARE, OTHER, SELFPAY ==
[2025-10-13 09:02] LABS: Hematocrit 38.6 % (37.0-47.0); Hemoglobin 12.7 g/dL (12.0-16.0); Mean Corp Hgb Conc. 32.9 g/dL (33.0-37.0); Mean Corpuscular Volume 94.8 fL (81.0-99.0); Nucleated Red Blood Cells % 0 %; Platelet Count 258 10^3/uL (130-400); Red Cell Dist. Width 13.7 % (11.5-14.5)
[2025-10-13 09:35] LABS: ALT (SGPT) 22 U/L (0-35); AST (SGOT) 30 U/L (14-36); Albumin 4.4 g/dl (3.5-5.0); Alkaline Phosphatase 111 U/L (38-126); Total Protein 6.4 g/dl (6.3-8.2)
[2025-10-13 09:52] LABS: Vitamin D, 25-OH*** 58.2 ng/mL (30-80)
== END ==
LOC: WDC 14:03
PROVIDERS: Internal Medicine Hematology & Oncology; ATTENDING PHYSICIAN Family Medicine
DX: C50.411 Malignant neoplasm of upper-outer quadrant of right female breast (principal); E55.9 Vitamin D deficiency, unspecified; Z12.31 Encounter for screening mammogram for malignant neoplasm of breast
CPT/HCPCS: 36415; 77063; 77067; 80076; 82306; 85025

== ENCOUNTER → 2025-11-10 07:41 | Outpatient (REF) | payer MEDICARE, OTHER, SELFPAY ==
[2025-11-10 08:47] LABS: Blood Urea Nitrogen 10 mg/dl (7-17); Calcium 9.3 mg/dl (8.4-10.2); Carbon Dioxide 27 mmol/L (22-30); Chloride 96 mmol/L (98-107); Glucose 92 mg/dl (70-99); HDL Cholesterol 81 mg/dl; LDL Cholesterol, Calculated 68 mg/dl; Potassium 4.1 mmol/L (3.5-5.1); Sodium 131 mmol/L (135-145); Very Low Density Lipoprotein 15 mg/dl (0-30); eGFR > 60.00
== END ==
LOC: REG 07:41
PROVIDERS: ATTENDING PHYSICIAN Family Medicine
DX: I34.0 Nonrheumatic mitral (valve) insufficiency (principal); E78.00 Pure hypercholesterolemia, unspecified
CPT/HCPCS: 36415; 80048; 80061